=== PATIENT | male | born 1970 | race Caucasian/White ===

== ENCOUNTER 2020-06-19 08:27 | Outpatient (REF) | payer OTHER, SELFPAY ==
--- NOTE | 2020-06-19 08:39 | US_ITS ---
EXAMINATION: US RETROPERITONEAL LIMITED (RENAL ONLY) CLINICAL INFORMATION: Hypertension. Complex renal cyst. COMPARISON: Renal ultrasound 06/18/2019 and 04/09/2017. MRI abdomen 05/26/2017. CT abdomen and pelvis 04/09/2017. TECHNIQUE: Real-time imaging of the kidneys. FINDINGS: RIGHT KIDNEY: 10.8 x 6.5 x 7.3 cm (SAG x AP x TRV). The kidney is normal in size, contour, and echogenicity. Renal cortical thickness is normal. No hydronephrosis. There is a mid pole anechoic cyst with calcification measuring 1.0 x 1.2 x 1.3 cm. A second cyst in the lower pole measures 2.3 x 1.9 x 2.4 cm. Small echogenic stone midpole without caliectasis measures 0.3 x 0.3 cm. LEFT KIDNEY: 10.9 x 7.3 x 6.3 cm (SAG x AP x TRV). The kidney is normal in size, contour, and echogenicity. Renal cortical thickness is normal. No calculi or focal parenchymal lesions. No hydronephrosis. US/US renal BI IMPRESSION: 1. Simple and complex cyst, right kidney. Nonobstructive small echogenic stone midpole right kidney. 2. Unremarkable left kidney.
== END 2020-06-19 08:28 | disposition home or self-care (01) ==
LOC: HO.US 08:27
PROVIDERS: PCP Internal Medicine; Visit Provider Internal Medicine Nephrology
DX: N17.9 Acute kidney failure, unspecified (principal); N28.1 Cyst of kidney, acquired; I10 Essential (primary) hypertension
CPT/HCPCS: 76775